=== PATIENT | female | born 2000 | race African-American/Black ===

== ENCOUNTER 2020-07-18 14:13 | Emergency (ER) | payer OTHER ==
[~2020-07-18 14:13] MED LIST: KEFLEX500 MG PO; NAPROXEN500 MG PO; ZOFRAN4 MG PO
[2020-07-18 16:24] LABS: ALBUMIN 3.2 g/dL (3.4-5.0); BILIRUBIN - TOTAL 0.1 mg/dL (0.2-1.0); BUN/CREAT RATIO (CALC) 10.1 RATIO; CREATININE 0.79 mg/dL (0.51-0.95); GLOBULIN (CALCULATION) 4.4 g/dL; POTASSIUM 3.9 mmol/L (3.5-5.1); TOTAL PROTEIN 7.6 g/dL (6.4-8.2)
== END 2020-07-18 16:18 | disposition left against medical advice (07) ==
LOC: FER 14:13
PROVIDERS: Emergency Medicine
DX: T14.8XXA Other injury of unspecified body region, initial encounter (principal); M54.2 Cervicalgia; R07.9 Chest pain, unspecified; F17.290 Nicotine dependence, other tobacco product, uncomplicated; V49.40XA Driver injured in collision with unspecified motor vehicles in traffic accident, initial encounter; Y92.410 Unspecified street and highway as the place of occurrence of the external cause
CPT/HCPCS: 36415; 80053; 84703; 99284

== ENCOUNTER 2021-03-27 16:43 | Emergency (ER) | payer OTHER ==
[2021-03-27 18:51] LABS: INFLUENZA A NAA NEGATIVE (NEGATIVE)
[2021-03-27 18:56] LABS: CORONAVIRUS 2019 SARS-COV-2 POSITIVE (NEGATIVE)
== END 2021-03-27 19:20 | disposition home or self-care (01) ==
LOC: FER 16:43
PROVIDERS: Nurse Practitioner Family
DX: U07.1 COVID-19 (principal)
CPT/HCPCS: 99283; U0002